=== PATIENT | female | born 1970 | race African-American/Black ===

== ENCOUNTER 2022-03-30 01:54 | Observation (INO) | payer BC ==
[2022-03-30] MEDS ORDERED: Sodium Chloride 0.9% 1,000 ML IV SCH (04:30)
[2022-03-30] MEDS ORDERED: Acetaminophen 325 MG TAB PO PRN ×2 (04:30→08:39)
[2022-03-30] MEDS ORDERED: Ondansetron ODT 4 MG TAB SL PRN (04:30)
[2022-03-30] MEDS ORDERED: Ondansetron PF 4 MG/2 ML Vial IVP PRN (04:30)
[2022-03-30] MEDS ORDERED: HumaLOG 300 UNITS/3 ML VIAL SC PRN (05:00)
[2022-03-30] MEDS ORDERED: Dextrose 5% in Water 1,000 ML IV PRN (05:00)
[2022-03-30] MEDS ORDERED: Dextrose 50% Abboject 50 ML SYRINGE IVP PRN (05:00)
[2022-03-30] MEDS: HumaLOG 300 UNITS/3 ML VIAL SC PRN ×2 (05:37→11:29)
[2022-03-30 05:57] VITALS: BMI 43.4
[2022-03-30] MEDS ORDERED: Senokot S 8.6-50 MG TAB PO PRN (08:39)
[2022-03-30] MEDS ORDERED: FLU VACC QS2022-23(6MOS UP)/PF 60 MCG/0.5 ML SYRINGE IM ONE (09:00)
[2022-03-30 09:38] LABS: Hemoglobin A1c 11.4 % (4.0-6.0)
[2022-03-30 09:53] LABS: Anion Gap 11 mmol/L (10-20); BUN (Urea Nitrogen) 8 mg/dL (7.0-18.7); Calc. Creatinine Clearance 134 mL/min (70-130); Calcium 9.1 mg/dL (7.8-10.44); Carbon Dioxide 25 mmol/L (22-29); Chloride 106 mmol/L (98-107); Estimated GFR 86; Glucose 169 mg/dL (70-105); Magnesium 1.8 mg/dL (1.6-2.6); Potassium 3.8 mmol/L (3.5-5.1); Sodium 138 mmol/L (136-145)
[2022-03-30] MEDS ORDERED: Electrolyte Replacement Protocol 1 EACH FS PRN (10:15)
[2022-03-30] MEDS ORDERED: Lisinopril 20 MG TAB PO SCH ×2 (10:15→21:00)
[2022-03-30] MEDS ORDERED: glipiZIDE 5 MG TAB PO SCH (10:30)
[2022-03-30 11:43] VITALS: TEMP 98.1
[2022-03-30 12:25] VITALS: BP 170/80
[2022-03-30] MEDS ORDERED: glipiZIDE 10 MG TAB PO SCH ×2 (17:00)
[2022-03-30] MEDS ORDERED: metFORMIN 500 MG TAB PO SCH (17:00)
[2022-03-30] MEDS ORDERED: Atorvastatin Calcium 20 MG TAB PO SCH (21:00)
== END 2022-03-30 10:04 | disposition home or self-care (01) ==
LOC: SJJU 04:06
PROVIDERS: ADMIT Internal Medicine; ATTEND Internal Medicine
DX: E11.65 Type 2 diabetes mellitus with hyperglycemia (principal); E86.0 Dehydration; I12.9 Hypertensive chronic kidney disease with stage 1 through stage 4 chronic kidney disease, or unspecified chronic kidney disease; E11.22 Type 2 diabetes mellitus with diabetic chronic kidney disease; N18.2 Chronic kidney disease, stage 2 (mild); N17.9 Acute kidney failure, unspecified; E78.5 Hyperlipidemia, unspecified; E87.1 Hypo-osmolality and hyponatremia; E66.01 Morbid (severe) obesity due to excess calories; Z68.41 Body mass index [BMI] 40.0-44.9, adult; Z79.84 Long term (current) use of oral hypoglycemic drugs; Z79.899 Other long term (current) drug therapy
CPT/HCPCS: 36415; 36416; 80048; 83036; 83735; G0378; J1815; J7050